=== PATIENT | female | born 1975 ===

== ENCOUNTER 2017-09-13 09:57 | Emergency (ER) | payer OTHER ==
[2017-09-13 10:56] VITALS: BP 106/67
--- NOTE | 2017-09-13 11:49 | UC ---
Abdominal Pain Female HPI - HPI Summary HPI Summary: ONSET OF N/V/D YESTERDAY. NO NEW FOODS OR EXPOSURES SHE IS AWARE OF. NO RECENT TRAVEL. NO VOMITING OR DIARRHEA SINCE YESTERDAY. APPETITE STILL DOWN AND STILL A BIT NAUSEATED BUT SIGNIFICANTLY IMPROVED TODAY. NO FEVER. WAS URGED TO SEEK EVALUATION BY FRIENDS. - History of Current Complaint Chief Complaint: UCGI Stated Complaint: STOMACH PAIN SWEATS Time Seen by Provider: 09/13/17 11:05 Hx Obtained From: Patient Hx Last Menstrual Period: 08/23/17 Onset/Duration: Sudden Onset, Lasting Hours, Lasting Days - 1 DAY, Still Present Severity Initially: Moderate Severity Currently: Mild Pain Intensity: 4 Pain Scale Used: 0-10 Numeric Location: Diffuse Radiates: No Character: Cramping Aggravating Factor(s): Food Alleviating Factor(s): Spontaneous Resolution Associated Signs and Symptoms: Positive: Decreased Appetite, Nausea, Vomiting, Diarrhea. Negative: Fever, Cough, Constipation, Blood in Stool Allergies/Adverse Reactions: Allergies Allergy/AdvReac Type Severity Reaction Status Date / Time Sulfa (Sulfonamide Allergy Hives Verified 09/13/17 10:52 Antibiotics) Home Medications: Home Medications ARIPiprazole TAB* [Abilify TAB*] 10 mg PO DAILY 09/13/17 [History Confirmed 08/26] BuPROPion XL* [Bupropion XL*] 300 mg PO DAILY 09/13/17 [History Confirmed ] FLUoxetine CAP* [Prozac CAP*] 60 mg PO DAILY 09/13/17 [History Confirmed ] PMH/Surg Hx/FS Hx/Imm Hx Psychological History: Anxiety, Depression - Surgical History Surgical History: Yes Surgery Procedure, Year, and Place: 2 C SECTIONS, TONSILS REMOVED AT AGE 7 - Family History Known Family History: Positive: Hypertension - Social History Alcohol Use: None Substance Use Type: None Smoking Status (MU): Former Smoker Type: Cigarettes Review of Systems Constitutional: Negative Skin: Negative Respiratory: Negative Cardiovascular: Negative Gastrointestinal: Abdominal Pain, Vomiting, Diarrhea, Nausea All Other Systems Reviewed And Are Negative: Yes Physical Exam Triage Information Reviewed: Yes Appearance: Well-Appearing, No Pain Distress, Well-Nourished Vital Signs: Initial Vital Signs Temp 99.0 F 09/13/17 10:48 Pulse 52 09/13/17 10:48 Resp 16 09/13/17 10:48 BP 106/67 09/13/17 10:48 Pulse Ox 99 09/13/17 10:48 Vital Signs Reviewed: Yes Eyes: Positive: Conjunctiva Clear ENT: Positive: Hearing grossly normal Neck: Positive: Supple Respiratory: Positive: No respiratory distress, No accessory muscle use Cardiovascular: Positive: Pulses Normal Abdomen Description: Positive: Soft, Other: - MILDLY TENDER DIFFUSELY. Negative : Distended, Guarding Bowel Sounds: Positive: Present Musculoskeletal: Positive: No Edema Neurological: Positive: Alert Psychological: Positive: Age Appropriate Behavior Skin: Negative: rashes Diagnostics - Laboratory Diagnostic Studies Completed/Ordered: URINE DIP UNREMARKABLE. URINE HCG NEGATIVE Abd Pain Female Course/Dx - Differential Dx/Diagnosis Provider Diagnoses: ACUTE GASTROENTERITIS Discharge - Sign-Out/Discharge Documenting (check all that apply): Discharge/Admit/Transfer - Discharge Plan Condition: Stable Disposition: HOME Prescriptions: Ondansetron ODT TAB* [Zofran Odt TAB*] 4 mg PO Q6H PRN #20 tab.odt PRN Reason: Nausea/Vomiting Patient Education Materials: Gastroenteritis (ED) Forms: *Work Release Referrals: Demarcus PENG,Franky Canas [Primary Care Provider] - If Needed Additional Instructions: GASTROENTERITIS: You have gastroenteritis ("intestinal flu"). This disease is usually caused by a virus. There is no specific treatment. The disease will end by itself. For now, the main danger is dehydration. Give clear liquids. Examples include Pedialyte, Gatorade, clear broth, juices, flat sodas, and jello water. Medications may be prescribed by the physician for special cases. Once tolerated, the clear liquid diet may be supplemented with rice, cereal, toast, applesauce, or bananas. Call the physician or go to the hospital if vomiting increases or blood appears in the bowel movement or vomitus; if you fail to improve, or if signs of dehydration occur (tongue and mouth become dry, lethargy). ENSURE ADEQUATE HYDRATION. CLEAR LIQUIDS, BLAND DIET. AVOID CAFFEINE, DAIRY, GREASY, SPICY FOODS. ONCE YOU ARE TOLERATING CLEAR LIQUIDS YOU CAN ADVANCE TO SIMPLE, BLAND FOODS. FOLLOW-UP HERE OR WITH YOUR PCP IF YOU ARE NOT CONTINUING TO IMPROVE EXPECTED. - Billing Disposition and Condition Condition: STABLE Disposition: Home
== END 2017-09-13 11:54 | disposition home or self-care (01) ==
LOC: UCCORT 09:57
DX: F41.8 Other specified anxiety disorders (principal); Z88.2 Allergy status to sulfonamides
CPT/HCPCS: 81003; 84702; 99202; G0463